=== PATIENT | female | born 1930 | race Caucasian/White ===

== ENCOUNTER 2022-04-03 22:14 | Emergency (ER) | payer MEDICARE, MEDICAID ==
[~2022-04-03] VITALS: Ht 149.9 cm; Wt 74.8 kg
[2022-04-03 22:40] VITALS: BP 159/53
[2022-04-03] MEDS ORDERED: traMADol 50MG tablet PO ONE (23:50)
[2022-04-03] MEDS ORDERED: TRAM50TA2 PO (23:51)
[2022-04-03] MEDS ORDERED: CEPH250T PO (23:51)
--- NOTE | 2022-04-04 00:35 | NUR ---
dressing applied to skin tare
== END 2022-04-04 00:37 | disposition home or self-care (01) ==
LOC: ER 22:17
DX: S51.812A Laceration without foreign body of left forearm, initial encounter (principal); R07.81 Pleurodynia; W18.39XA Other fall on same level, initial encounter; Y93.89 Activity, other specified; Y92.89 Other specified places as the place of occurrence of the external cause; Y99.8 Other external cause status
CPT/HCPCS: 71110; 99283; A6449

== ENCOUNTER 2022-04-06 15:16 | Emergency (ER) | payer MEDICARE, MEDICAID ==
[~2022-04-06] VITALS: Ht 149.9 cm; Wt 74.7 kg
[~2022-04-06 15:16] MED LIST: CEPH250T PO; TRAM50TA2 PO
[2022-04-06 15:41] VITALS: BP 173/57
== END 2022-04-06 16:57 | disposition home or self-care (01) ==
LOC: ER 15:17
DX: M79.632 Pain in left forearm (principal); R07.81 Pleurodynia; R53.83 Other fatigue; S51.812D Laceration without foreign body of left forearm, subsequent encounter; Z48.00 Encounter for change or removal of nonsurgical wound dressing; Z79.2 Long term (current) use of antibiotics; Z79.899 Other long term (current) drug therapy; W19.XXXD Unspecified fall, subsequent encounter
CPT/HCPCS: 99284; A6449